=== PATIENT | male | born 1995 | race Caucasian/White ===

== ENCOUNTER 2016-07-07 14:32 | Emergency (ER) | payer OTHER ==
[~2016-07-07] VITALS: Ht 182.9 cm; Wt 63.5 kg
[2016-07-07 14:38] VITALS: BP_SYST 138
--- NOTE | 2016-07-07 14:45 | NUR ---
12 lead EKG done in triage Dr. Rodriguez aware
[2016-07-07 15:17] LABS: BASOPHILS % (AUTO) 0.5 % (0.0-2.0); HEMATOCRIT 44.1 % (36-54); HEMOGLOBIN 14.7 g/dL (14.0-18.0); LYMPHOCYTES # (AUTO) 1.6 K/uL (1.0-5.5); LYMPHOCYTES % (AUTO) 38.5 % (20.5-51.5); MEAN CORPUSCULAR HEMOGLOBIN 26 pg (27-31); MEAN CORPUSCULAR HGB CONC 33 % (32-36); MEAN CORPUSCULAR VOLUME 80 fL (79.0-98.0); MONOCYTES # (AUTO) 0.2 K/uL (0.0-1.0); MONOCYTES % (AUTO) 5.5 % (1.7-9.3); NEUTROPHILS # (AUTO) 2.5 K/uL (1.8-7.7); NEUTROPHILS % (AUTO) 54.5 % (40.0-70.0); PLATELET COUNT (AUTO) 240 K/uL (130-430); RED BLOOD CELL COUNT(AUTO) 5.55 MIL/uL (4.2-6.2); RED CELL DISTRIBUTION WIDTH 13.6 % (9.0-15.0); WHITE BLOOD COUNT (AUTO) 4.3 K/uL (4.5-11.0)
[2016-07-07 15:26] LABS: CALCIUM 9.9 mg/dL (8.4-11.0); CREATININE 0.99 mg/dL (0.55-1.30)
--- NOTE | 2016-07-07 15:29 | NUR ---
ambulated to bed 3
--- NOTE | 2016-07-07 15:30 | NUR ---
Pt presents to ED c/o chest pain. Pt has no acute distress noted. Pt has no other med hx. Pt reports h/o heroin abuse. Prior to placement in andi. Pt's pain resolved prior to placement in room.
[2016-07-07 15:32] LABS: ALBUMIN 4.6 g/dL (3.4-4.8); TOTAL BILIRUBIN 0.7 mg/dL (0.0-1.0); TOTAL PROTEIN, SERUM 8.1 g/dL (6.4-8.3)
--- NOTE | 2016-07-07 15:35 | NUR ---
ER at bedside examining patient.
[2016-07-07 15:58] VITALS: BP_SYST 138
--- NOTE | 2016-07-07 15:58 | NUR ---
Patient given written and verbal discharge instructions and verbalizes understanding. ER MD discussed with patient the results and treatment provided. Given copies of tests performed in ER. Patient in stable condition. ID arm band removed. Patient educated on pain management and to follow up with PMD. Pain Scale 0. Opportunity for questions provided and answered.
== END 2016-07-07 15:58 | disposition home or self-care (01) ==
LOC: SED 14:32
DX: R07.89 Other chest pain (principal); R03.0 Elevated blood-pressure reading, without diagnosis of hypertension; J45.909 Unspecified asthma, uncomplicated
CPT/HCPCS: 36415; 71010; 80053; 84484; 85025; 85379; 93005; 99285

== ENCOUNTER 2017-02-22 02:52 | Emergency (ER) | payer OTHER ==
[~2017-02-22] VITALS: Ht 180.3 cm; Wt 68.0 kg
[2017-02-22 03:05] VITALS: BP_SYST 139
[2017-02-22 04:12] VITALS: BP_SYST 115
== END 2017-02-22 04:12 | disposition home or self-care (01) ==
LOC: SED 02:52
DX: S13.4XXA Sprain of ligaments of cervical spine, initial encounter (principal); M79.1 Myalgia; J45.909 Unspecified asthma, uncomplicated; X58.XXXA Exposure to other specified factors, initial encounter; Y93.89 Activity, other specified; Y92.89 Other specified places as the place of occurrence of the external cause; Y99.8 Other external cause status
CPT/HCPCS: 99282

== ENCOUNTER 2017-05-13 21:23 | Emergency (ER) | payer SELFPAY ==
[~2017-05-13] VITALS: Ht 182.9 cm; Wt 81.6 kg
--- NOTE | 2017-05-13 23:00 | NUR ---
Patient to ER bed 8 to gown for evaluation. Side rails up.
--- NOTE | 2017-05-13 23:15 | NUR ---
PT IN BED 7 WITH C/O LEFT WRIST PAIN X 1 WEEK , DR REIS AWARE.
--- NOTE | 2017-05-13 23:30 | NUR ---
JUAN Tovar at bedside examining patient.
--- NOTE | 2017-05-13 23:50 | NUR ---
Patient transported to radiology via , accompanied by [employer]EM[employer].
--- NOTE | 2017-05-14 00:25 | NUR ---
Returned from radiology, back to [facility].
[2017-05-14 01:24] VITALS: BP_SYST 118
--- NOTE | 2017-05-14 01:25 | NUR ---
Patient given written and verbal discharge instructions and verbalizes understanding. ER MD discussed with patient the results and treatment provided. Patient in stable condition. ID arm band removed. NO Rx given. Patient educated on pain management and to follow up with PMD. Pain Scale 0/10. Opportunity for questions provided and answered.
== END 2017-05-14 01:24 | disposition home or self-care (01) ==
LOC: EDSEX → SED 21:23
DX: M25.532 Pain in left wrist (principal); J45.909 Unspecified asthma, uncomplicated; F11.90 Opioid use, unspecified, uncomplicated
CPT/HCPCS: 93971; 99284

== ENCOUNTER 2017-05-17 00:29 | Emergency (ER) | payer SELFPAY ==
[~2017-05-17] VITALS: Ht 182.9 cm; Wt 81.6 kg
[2017-05-17 00:41] VITALS: BP_SYST 138
[2017-05-17 01:59] VITALS: BP_SYST 138
== END 2017-05-17 01:59 | disposition home or self-care (01) ==
LOC: SED 00:29 → EDSEX 00:29 → SED 01:59
DX: R25.2 Cramp and spasm (principal); F15.90 Other stimulant use, unspecified, uncomplicated; J45.909 Unspecified asthma, uncomplicated
CPT/HCPCS: 99281

== ENCOUNTER 2017-06-06 19:52 | Emergency (ER) | payer BC ==
[~2017-06-06] VITALS: Ht 182.9 cm; Wt 81.6 kg
[2017-06-06 20:00] VITALS: BP_SYST 132
--- NOTE | 2017-06-06 22:48 | NUR ---
Patient to ER bed 6 to gown for evaluation. Side rails up. Report given to JOSE PACKER.
--- NOTE | 2017-06-06 22:50 | NUR ---
Patient AAO x4, sitting in bed c/o red bump to left upper thigh x 1 week. Skin red, intact, no drainage noted, circular and tender to touch. Patient states he is self treating and taking amoxicillin from "a [facility]". No acute distress noted. Will continue to monitor.
--- NOTE | 2017-06-06 23:00 | NUR ---
ER at bedside examining patient.
[2017-06-06] MEDS ORDERED: cefTRIAXone 1 GM VIAL IM ONE (23:30)
[2017-06-06] MEDS ORDERED: LIDOCAINE 1%, 20 ML MDV 20 ML ONE (23:45)
[2017-06-07 00:13] VITALS: BP_SYST 128
--- NOTE | 2017-06-07 00:13 | NUR ---
Patient given written and verbal discharge instructions and verbalizes understanding. ER MD discussed with patient the results and treatment provided. Patient in stable condition. ID arm band removed. Rx of Motrin, Bacrtrim and Keflex given. Patient educated on pain management and to follow up with PMD. Pain Scale 2/10 tolerable for patient. Opportunity for questions provided and answered. Medication side effect fact sheet provided.
== END 2017-06-07 00:13 | disposition home or self-care (01) ==
LOC: SED 19:52
DX: L03.116 Cellulitis of left lower limb (principal); F11.10 Opioid abuse, uncomplicated; J45.909 Unspecified asthma, uncomplicated
CPT/HCPCS: 96372; 99283; J0696; J2001

== ENCOUNTER 2022-01-03 16:34 | Emergency (ER) | payer BC ==
[~2022-01-03] VITALS: Ht 182.9 cm; Wt 99.8 kg
[2022-01-03 16:39] VITALS: BP_SYST 157
--- NOTE | 2022-01-03 17:08 | NUR ---
pt bib self to ER. Pt CC head ache throbbing pressure to frontal lobe radiates to neck. Afebrile denies head injury, denies NV. Onset 72 hours. No previous medical hx. Pt states confusion and fatique. Pt is aaox4.
--- NOTE | 2022-01-03 17:10 | NUR ---
Pt refuses pain medication stating its more of an "uneasy feeling in my head."
--- NOTE | 2022-01-03 17:14 | NUR ---
Pt with radiology for CT scan , ambulates with steady gait.
[2022-01-03 17:58] LABS: BASOPHILS # (AUTO) 0.1 K/uL (0.0-0.2); BASOPHILS % (AUTO) 1.2 % (0.0-2.0); EOSINOPHILS % (AUTO) 0.5 % (0.0-4.0); HEMATOCRIT 44.1 % (36-54); LYMPHOCYTES # (AUTO) 0.9 K/uL (1.0-5.5); LYMPHOCYTES % (AUTO) 14.1 % (20.5-51.5); MEAN CORPUSCULAR VOLUME 79 fL (79.0-98.0); MONOCYTES # (AUTO) 0.4 K/uL (0.0-1.0); NEUTROPHILS % (AUTO) 78.2 % (40.0-70.0); PLATELET COUNT (AUTO) 223 K/uL (130-430); WHITE BLOOD COUNT (AUTO) 6.4 K/uL (4.8-10.8)
[2022-01-03 18:07] LABS: ANION GAP 11 (5-15); CALCIUM 9.1 mg/dL (8.4-11.0); CHLORIDE 102 mmol/L (98-107); CREATININE 0.79 mg/dL (0.55-1.30); GLUCOSE 107 mg/dL (70-99); UREA NITROGEN, BLOOD 13 mg/dL (8-21)
[2022-01-03 18:11] LABS: GFR AFRICAN AMERICAN 154 mL/min (>90)
[2022-01-03 18:13] LABS: ALANINE AMINOTRANSFERASE 21 U/L (12-78); ALBUMIN 4.1 g/dL (3.4-4.8); ASPARTATE AMINOTRANSFERASE 16 U/L (10-37); TOTAL BILIRUBIN 0.5 mg/dL (0.0-1.0)
[2022-01-03 18:26] LABS: C-REACTIVE PROTEIN QUANT < 0.2 mg/dL (0-0.5)
[2022-01-03] MEDS ORDERED: ONDA-8 TL (19:09)
[2022-01-03] MEDS ORDERED: IBUP-1971 PO (19:09)
[2022-01-03 19:20] VITALS: BP_SYST 157
--- NOTE | 2022-01-03 19:20 | NUR ---
Patient given written and verbal discharge instructions and verbalizes understanding. ER MD discussed with patient the results and treatment provided. Patient in stable condition. ID arm band removed. Opportunity for questions provided and answered. Medication side effect fact sheet provided.
== END 2022-01-03 19:20 | disposition home or self-care (01) ==
LOC: SED 16:34
DX: R51.9 Headache, unspecified (principal); M54.2 Cervicalgia; J45.909 Unspecified asthma, uncomplicated; F19.10 Other psychoactive substance abuse, uncomplicated; Z79.899 Other long term (current) drug therapy; Z20.822 Contact with and (suspected) exposure to COVID-19
CPT/HCPCS: 36415; 70450-TC; 76376; 80053; 85025; 86140; 99284